=== PATIENT | male | born 1985 | race Caucasian/White ===

== ENCOUNTER 2017-06-18 11:52 | Inpatient (IN) | payer BC, OTHER ==
[~2017-06-18] VITALS: Ht 188 cm; Wt 93.0 kg
[2017-06-18] MEDS ORDERED: MAG HYDROX/AL HYDROX/SIMETH 30 ML LIQUID UDC PO PRN (12:30)
[2017-06-18] MEDS ORDERED: ONDANSETRON ODT 4 MG TAB.RAPDIS SL PRN (12:30)
[2017-06-18] MEDS ORDERED: DICYCLOMINE HCL 20 MG TABLET PO PRN (12:30)
[2017-06-18] MEDS ORDERED: METHOCARBAMOL 750 MG TABLET PO PRN (12:30)
[2017-06-18] MEDS ORDERED: ONDANSETRON 4 MG/2 ML VIAL IM PRN (12:30)
[2017-06-18] MEDS ORDERED: BUPRENORPHINE HCL 2 MG TAB.SUBL SL PRN (12:30)
[2017-06-18] MEDS ORDERED: ACETAMINOPHEN 325 MG TABLET PO PRN (12:30)
[2017-06-18] MEDS ORDERED: MIRALAX 17 GM POWD.PACK PO PRN (12:30)
[2017-06-18] MEDS ORDERED: DOCUSATE SODIUM 250 MG CAPSULE PO PRN (12:30)
[2017-06-18] MEDS ORDERED: LOPERAMIDE HCL 2 MG CAPSULE PO PRN ×2 (12:30)
--- NOTE | 2017-06-18 12:35 | NUR ---
PRE ASSESSMENT: PATIENT ARRIVED AT INTAKE AT 1235 , PATIENT IS ALERT AND ORIENTED AND ABLE TO ANSWER ALL RELEVANT QUESTIONS. VITAL SIGNS BP 161/95, HR 89, RR 18, TEMP 98.2. HEIGHT IS 6'2" AND WEIGHT 205 LBS. PATIENT IS HERE TO DETOX FROM OPIATES( PERCOCET ) AND BENZODIAZEPINES ( XANAX ). WILL CONTINUE ASSESSMENT WHEN PATIENT IS ON FLOOR . PATIENT WILL BE ADMITTED TO ROOM 306 UNDER THE CARE OF DR BRAXTON.
--- NOTE | 2017-06-18 13:20 | NUR ---
ADMISSION: PATIENT HAS BEEN ADMITTED TO THE FLOOR AND IS IN ROOM 306. SKIN CHECK DONE AND INTACT. PATIENT IS HERE TO DETOXIFY FROM OPIATES AND BENZODIAZEPINES. HE STATES HE RECENTLY MOVED HERE FROM [place] AND IS LIVING WITH HIS BROTHER AND HIS FAMILY ENCOURAGED HIM TO GO TO TREATMENT, PATIENT STATES HE WORKS IN [employer] AND HAS LOST THE LAST 3 GIGS DUE TO HIS SUBSTANCE ABUSE AND RAPID DECLINE OF HIS HEALTH. 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 PATIENT STATES HE HAS BEEN USING PERCOCET FOR 10 YEARS AND HAS BEEN CONSUMING 90-300MG OXYCODONE/DAY ORALLY OR SNORTING, LAST CONSUMED 90MG ON 06/17/17. PATIENT REPORTS USING XANAX FOR THE PAST 3 YEARS 2-4MG /DAY PO OR SNORT , LAST USED 1 MG PO ON 06/17/17. THIS IS THE PATIENTS FIRST TIME IN DETOX. PATIENT HAS NO PRIMARY CARE PHYSICIAN HERE IN [place], NO PSYCHOLOGIST OR PSYCHIATRIST, HE DENIES ANY SI/HI. DECLINES THE FLU AND PNU VACCINE. PATIENT STATES A HISTORY OF ANXIETY. DR BRAXTON STARTED PATIENT ON AN ATIVAN/SUBUTEX TAPER. PATIENT INSTRUCTED ON RULES OF THE UNIT, VITAL SIGNS AND HOW TO USE CALL LIGHT, URINE DRUG SCREEN AND BLOOD WORK SENT TO LAB.FOLLOW MD PLAN OF CARE Addendum: 06/18/17 at 1513 by JOANNE ALFONSO RN 1330 : initial COWS 16 CIWA 12
[2017-06-18] MEDS: BUPRENORPHINE HCL 2 MG TAB.SUBL SL SCH ×3 (13:28→20:09)
[2017-06-18] MEDS: METHOCARBAMOL 750 MG TABLET PO PRN (13:28)
[2017-06-18] MEDS: LORAZEPAM 1 MG TABLET PO SCH ×3 (13:28→20:09)
--- NOTE | 2017-06-18 13:28 | NUR ---
PRN ROBAXIN ROBAXIN 750MG PO GIVEN FOR C/O GENERAL BODY ACHES 10/10, WILL REASSESS
[2017-06-18 13:30] VITALS: BP 161/95
[2017-06-18 13:46] LABS: BASOPHILS % (AUTO) 0.5 % (0.0-2.0); EOSINOPHILS % (AUTO) 0.3 % (0.0-7.0); HEMOGLOBIN 14.4 g/dL (12.5-16.3); LYMPHOCYTES # (AUTO) 1.9 K/uL (20.0-40.0); LYMPHOCYTES % (AUTO) 21.9 % (20.5-51.5); MEAN CORPUSCULAR HEMOGLOBIN 29.8 uug (23.8-33.4); MEAN CORPUSCULAR HGB CONC 34 g/dL (32.5-36.3); MEAN CORPUSCULAR VOLUME 87.1 fL (73.0-96.2); MONOCYTES # (AUTO) 0.8 K/uL (2.0-10.0); MONOCYTES % (AUTO) 9.1 % (0.0-11.0); NEUTROPHILS % (AUTO) 68.2 % (38.5-71.5); PLATELET COUNT (AUTO) 241 K/uL (152-348); RED BLOOD CELL COUNT(AUTO) 4.82 MIL/uL (4.06-5.63); WHITE BLOOD COUNT (AUTO) 8.8 K/uL (3.6-10.2)
[2017-06-18 13:48] LABS: ETHANOL < 3 MG/DL (0-0)
[2017-06-18 13:51] LABS: ALANINE AMINOTRANSFERASE 53 U/L (16-63); ALKALINE PHOSPHATASE 77 U/L (50-136); ASPARTATE AMINOTRANSFERASE 27 U/L (15-37); BILIRUBIN,TOTAL 0.5 mg/dL (0.2-1.0); CARBON DIOXIDE 30 mmol/L (21-32); CHLORIDE 101 mmol/L (98-107); CREATININE 1.2 mg/dL (0.6-1.3); GLUCOSE 100 mg/dL (74-106); MAGNESIUM 2.1 mg/dL (1.8-2.4); POTASSIUM 3.8 mmol/L (3.5-5.1); TOTAL PROTEIN, SERUM 7.9 g/dL (6.4-8.2); UREA NITROGEN, BLOOD 13 mg/dL (7-18)
[2017-06-18 14:02] LABS: *AMPHETAMINE, URINE NEGATIVE (NEGATIVE); *BARBITURATE, URINE NEGATIVE (NEGATIVE); *CANNABINOID, URINE POSITIVE (NEGATIVE); *COCCAINE, URINE POSITIVE (NEGATIVE); *OPIATE, URINE POSITIVE (NEGATIVE); *PHENCYCLIDINE SCREEN,URINE NEGATIVE (NEGATIVE)
--- NOTE | 2017-06-18 14:28 | NUR ---
PRN ROBAXIN REASSESS PT STATES HIS WITHDRAWALS ARE "KICKING IN " , ROBAXIN 750MG PO HELPED , PAIN NOW 08/10, CONTINUE TO MONITOR
[2017-06-18] MEDS: BUPRENORPHINE HCL 2 MG TAB.SUBL SL PRN (15:08)
--- NOTE | 2017-06-18 15:10 | NUR ---
prn subutex 4mg SL subutex PRN given for COWS 17 CIWA 16, patient experiencing withdrawals, anxiety, restlessness, general body aches and runny nose. will continue to monitor
[2017-06-18 16:00] VITALS: BP 131/80
--- NOTE | 2017-06-18 16:00 | NUR ---
PRN MOTRIN MOTRIN 600MG PO GIVEN FOR BODY ACHES 10/10, WILL REASSESS
[2017-06-18] MEDS: IBUPROFEN 600 MG TABLET PO PRN ×2 (16:01→20:10)
[2017-06-18] MEDS ORDERED: CYAN500T47 PO (16:03)
--- NOTE | 2017-06-18 16:10 | NUR ---
PRN REASSESS PATIENT STATES THAT HIS WITHDRAWAL SYMPTOMS ARE STILL STRONG, HE HAS A FLUSHED FACE, FEELING LIKE BUGS ARE CRAWLING OVER HIS SKIN AND BODY ACHES, SCHEDULED 2 MG PO ATIVAN WILL BE GIVEN NOW, CONTINUE TO MONITOR, SAFETY MEASURES IN PLACE, BED LOW LOCKED POSITION , CALL LIGHT WITHIN REACH WITH INSTRUCTIONS ON HOW TO USE IT IF HELP NEEDED. Addendum: 06/18/17 at 1740 by JOANNE ALFONSO RN 1610 COWS 17 TERELL 17 ( NO CHANGE )
[2017-06-18] MEDS ORDERED: LORAZEPAM 1 MG TABLET PO PRN (16:15)
[2017-06-18] MEDS ORDERED: LORAZEPAM 2 MG/1 ML VIAL IM PRN (16:15)
--- NOTE | 2017-06-18 17:10 | NUR ---
MOTRIN REASSESS MOTRIN 600MG PO NOT EFFECTIVE, PT STATES HIS ACHES ARE STILL 6/10, WILL CONTINUE TO MONITOR AND OFFER HELP
--- NOTE | 2017-06-18 18:00 | NUR ---
PRN ATIVAN 2MG PO ATIVAN GIVEN FOR CIWA 16, PT ANXIOUS AND FEELS LIKE BUGS ARE CRAWLING OVER HIM, WILL REASSESS
[2017-06-18] MEDS: LORAZEPAM 1 MG TABLET PO PRN (18:03)
--- NOTE | 2017-06-18 19:00 | NUR ---
ATIVAN REASSESS PATIENT STILL EXPERIENCING UNCOMFORTABLE WITHDRAWAL SYMPTOMS BUT STATES THAT IT IS MANAGEABLE, CONTINUE TO MONITOR
--- NOTE | 2017-06-18 19:27 | NUR ---
END OF SHIFT : 306 PATIENT WAS ADMITTED TODAY 06/18/17 FOR WITHDRAWAL FROM OPIATES AND BENZODIAZEPINES. PATIENT HAS STARTED ON A 5 DAY ATIVAN AND SUBUTEX TAPER, LAST COWS 17 AND CIWA 16 @ 1700. PATIENT HAS SYMPTOMS OF WITHDRAWAL: FEELS LIKE BUGS ARE CRAWLING OVER HIM, GOOSEFLESH, SWEATING, CHILLS ALL OVER BODY ACHES AND ANXIOUSNESS. PRN ROBAXIN 750MG PO , SUBUTEX 4MG SL, MOTRIN 600MG PO, ATIVAN 2MG PO ALL GIVEN THIS SHIFT IN ADDITION TO SCHEDULED TAPER MEDS. PATIENT HAD A FLUID INTAKE THIS SHIFT OF 2200ML, 4 VOIDS AND 1 BM, CONTINUE TO MONITOR AND FOLLOW MD PLAN OF CARE.
--- NOTE | 2017-06-18 19:30 | NUR ---
Start of Shift Note: Received patient alert & oriented x4. Patient presented with an anxious mood and has a worried facial expression. Patient started on a 5-day Ativan and 5-day Subutex taper and tolerating well. Patient appears flushed, with red & teary eyes, diaphoretic, and looks disheveled. Patient reports cold sweats, 7/10generalized body aches, runny nose, yawning and anxiety. Patient also reports something crawling in his skin yet denies visual or auditory hallucinations. Last COWS 17 CIWA 16. Pt received Robaxin, Subutex, Ativan and Motrin and was effective per report. Encourage pt to increase fluid intake. Pt educated current plan of care for the night and medication regimen.
[2017-06-18 20:00] VITALS: BP 135/84
[2017-06-18] MEDS: GABAPENTIN 300 MG CAPSULE PO SCH (20:10)
--- NOTE | 2017-06-18 20:10 | NUR ---
PRN Motrin Patient complained of 7/10 generalized body aches. Pt noted restless in bed and with facial grimacing noted. PRN Motrin administered as ordered. Will monitor for effectiveness of medication.
--- NOTE | 2017-06-18 21:10 | NUR ---
PRN Reassessment Pt verbalized decreased in pain from 7/10 to 3/10 & restlessness after medication administration. No facial grimacing noted. Pt observed comfortable in bed. Safety measures in place. Will continue to monitor patient.
[2017-06-19] VITALS (7 sets, daily range): BP systolic 118–142; BP diastolic 70–89
--- NOTE | 2017-06-19 07:00 | NUR ---
Start of Shift Note: Patient remained alert & oriented x4. Patient is on a 6-day Ativan & 6-day Subutex taper and tolerating well. No adverse reactions noted. Continue to closely monitor patient for s/s of withdrawal. Patient presented with cold sweats, generalized body aches, runny nose, teary eyes, yawning, fine tremors anxiety & agitation during my shift. Pt received PRN Motrin for body aches and was effective. Last CI. Closely monitored vitals signs and noted WNL. Pt slept for a total of 7 hours. Fluid intake: 592ml. Voided 2x with no bowel movement during my shift. Patient encourage to increase fluid intake as tolerated. All needs attended. Safety measures in place. Will endorse to day shift nurse. Addendum: 06/19/17 at 0700 by HEENA KEE RN ERROR: DUPLICATE
--- NOTE | 2017-06-19 07:00 | NUR ---
End of Shift Note: Patient remained alert & oriented x4. Patient is on a 6-day Ativan & 6-day Subutex taper and tolerating well. No adverse reactions noted. Continue to closely monitor patient for s/s of withdrawal. Patient presented with cold sweats, generalized body aches, runny nose, teary eyes, yawning, fine tresmors anxiety & agitation during my shift. Pt received PRN Motrin for body aches and was effective. Last CI. Closely monitored vitals signs and noted WNL. Pt slept for a total of 7 hours. Fluid intake: 592ml. Voided 2x with no bowel movement during my shift. Patient encourage to increase fluid intake as tolerated. All needs attended. Safety measures in place. Will endorse to day shift nurse.
[2017-06-19 07:06] LABS: HEPATITIS B SURFACE AG Negative (Negative)
--- NOTE | 2017-06-19 07:20 | NUR ---
START OF SHIFT: PATIENT IS ASLEEP IN BED AT THIS TIME, BREATHING EVEN AND UNLABORED, SIDE RAILS UP X 2. PATIENT REQUIRED PRN MOTRIN ON PM SHIFT , HE SLEPT FOR 7 HOURS. LAST COWS 13 AND CIWA 13. THIS IS DAY 2 OF PATIENTS SUBUTEX/ATIVAN TAPER, WILL MONITOR CAREFULLY FOR SIGS/SYMPTOMS OF WITHDRAWAL AND FOLLOW MD PLAN OF CARE.
[2017-06-19] MEDS: LORAZEPAM 1 MG TABLET PO SCH ×3 (08:09→20:12)
[2017-06-19] MEDS: GABAPENTIN 300 MG CAPSULE PO SCH ×2 (08:09→14:13)
[2017-06-19] MEDS: BUPRENORPHINE HCL 2 MG TAB.SUBL SL SCH ×3 (08:10→20:12)
[2017-06-19] MEDS: METHOCARBAMOL 750 MG TABLET PO PRN ×3 (08:14→20:12)
--- NOTE | 2017-06-19 08:14 | NUR ---
PRN ROBAXIN ROBAXIN 750MG PO GIVEN FOR BODY ACHES, PAIN 5/10, WILL REASSESS IN 1 HR
[2017-06-19] MEDS ORDERED: TUBERCULIN,PURIF.PROT.DERIV. 5 TU/0.1 ML TEST ID ONE (09:00)
--- NOTE | 2017-06-19 09:14 | NUR ---
PRN REASSESS PATIENT STATES THAT THE ROBAXIN HAS HELPED SOMEWHAT, PAIN LEVEL 4/10 BUT HE STILL HAS THE FEELING OF BUGS CRAWLING ALL OVER HIS SKIN, WILL CONTINUE TO ASSESS
--- NOTE | 2017-06-19 10:30 | NUR ---
PRN MEDS PRN SUBUTEX 4MG SL AND ATIVAN 2MG PO GIVEN FOR COWS 16 / CIWA 17 CLONIDINE 0.1MG PO GIVEN FOR ANXIETY BP 133/84 , HR 96 WILL REASSESS IN 1 HR
[2017-06-19] MEDS: LORAZEPAM 1 MG TABLET PO PRN ×2 (10:34→17:25)
[2017-06-19] MEDS: CLONIDINE HCL 0.1 MG TABLET PO PRN ×2 (10:36→20:12)
[2017-06-19] MEDS: BUPRENORPHINE HCL 2 MG TAB.SUBL SL PRN (10:36)
--- NOTE | 2017-06-19 11:30 | NUR ---
PRN REASSESS PATIENT STATES THE MEDICATION HAS HELPED WITH HIS WITHDRAWAL SYMPTOMS , HE FEELS "LESS ANXIOUS AND JITTERY" SAFETY MEASURES IN PLACE, BED LOW AND LOCKED WITH SIDE RAILS UP X 2, CONTINUE TO MONITOR. COWS 14/ CIWA 14
[2017-06-19] MEDS: IBUPROFEN 600 MG TABLET PO PRN (17:24)
--- NOTE | 2017-06-19 17:25 | NUR ---
PRN MEDS PRN ATIVAN 2MG PO GIVEN FOR COWS 13/CIWA 14 AND FOR C/O INCREASED ANXIETY ROBAXIN 750MG PO FOR NECK/BACK PAIN 09/09 MOTRIN 600MG PO WILL REASSESS
--- NOTE | 2017-06-19 18:25 | NUR ---
PRN REASSESS PATIENT IS NOTED TO BE ASLEEP, BREATHING EVEN AND UNLABORED, SIDE RAILS UP X 2
--- NOTE | 2017-06-19 19:30 | NUR ---
Start of Shift Note: Received patient alert & oriented x4. Patient appears flushed with red/teary eyes, looks unkempt and disheveled. Pt isolative in room most of the day. Encourage pt to increase activity and to participate in group activities to learn new coping skills. Pt has a flat affect, anxious/irritable mood, & with poor eye conact. Patient reports sweating, chills, 8/10 generalized body aches, restless legs, runny nose, yawning and anxiety. Patient also reports something crawling in his skin yet denies visual or auditory hallucinations. Patient is on a 5-day Ativan and 5-day Subutex taper with no adverse reactions noted. Pt tolerating taper well. Last COWS CIWA 14. Pt received Ativan 2mg, Robaxin & Motrin and were effective per report. Encourage pt to increase fluid intake. Pt educated current plan of care for the night and medication regimen.
--- NOTE | 2017-06-19 19:31 | NUR ---
END OF SHIFT : PATIENT DETOXING FROM OPIATES AND BENZOS ON DAY 2 OF ATIVAN/SUBUTEX TAPER. PATIENT HAS A VERY FLAT , DEPRESSED AFFECT AND HAS ISOLATED IN HIS ROOM ALL DAY, ENCOURAGED TO GO TO GROUP BUT DECLINED SAYING HE DIDN'T FEEL LIKE BEING AROUND PEOPLE. PRN MEDS GIVEN ON THIS SHIFT : ROBAXIN 750MG PO X 2, ATIVAN 2 MG PO , MOTRIN 600MG PO AND SUBUTEX 4MG SL. PATIENT STATES THAT HE IS UNCOMFORTABLE WITH HIS WITHDRAWALS AND DOESNT LIKE THE FEELING HE HAS OF BUGS CRAWLING OVER HIS SKIN ALL THE TIME. PATIENT HAS FLUSHED FACE WITH BEADS OF SWEAT ON FACE. ENCOURAGED PATIENT TO DRINK MORE FLUIDS. LAST COWS 13 AND CIWA 14 @ 6132. CONTINUE MD PLAN OF CARE.
--- NOTE | 2017-06-19 20:12 | NUR ---
PRN Clonidine & Robaxin Patient is anxious and agitated. Pt reports sweating, chills and generalized body aches with facial grimacing noted. PRN Clonidine and Robaxin administered as ordered. Safety measures in place. Will continue to monitor patient.
--- NOTE | 2017-06-19 21:12 | NUR ---
PRN Reassessment Pt verbalized decreased in anxiety and pain from 8/10 to 4/10 after medication administation. Pt also reported decreased in sweating or chills. Safety measures in place. Will continue to monitor patient.
--- NOTE | 2017-06-20 07:20 | NUR ---
End of Shift Note: Patient continues on a 6-day Ativan & 6-day Subutex taper and tolerating well. No adverse reactions noted. Continue to closely monitor patient for s/s of withdrawal. Patient presented with cold sweats, generalized body aches, runny nose, teary eyes, yawning, fine tresmors anxiety & agitation during my shift. Pt received PRN Clonidine for sweating and chills & Robaxin for body aches and were effective. Last COWS 14 CIWA 13. Closely monitored vitals signs and noted WNL. Pt slept for a total of 8 hours. Fluid intake: 1000 ml. Voided 2x with no bowel movement during my shift. Patient encourage to increase fluid intake as tolerated. All needs attended. Safety measures in place. Will endorse to day shift nurse.
--- NOTE | 2017-06-20 07:30 | NUR ---
Start of shift note; Received report from night shift supervisor nurse. Patient is a 32 year old male admitted on 06/18/17 for Opiate / Benzodiazepine withdrawals. Patient is AOX4 complaining of muscle aches, anxiety, agitation, diaphoresis, avoidant to eye contact, worried, tremors to touch. Educated patient regarding the importance of compliance to treatment and medication regime, patient verbalized understanding. Encouraged patient to participate in group therapies and to verbalize feelings. All safety measures secured. Will continue to monitor patient.
[2017-06-20 08:00] VITALS: BP 133/86
[2017-06-20] MEDS ORDERED: BUPRENORPHINE HCL 2 MG TAB.SUBL SL SCH (09:00)
[2017-06-20] MEDS ORDERED: GABAPENTIN 300 MG CAPSULE PO SCH ×3 (09:00→21:00)
[2017-06-20] MEDS: LORAZEPAM 1 MG TABLET PO SCH ×4 (09:12→20:37)
[2017-06-20] MEDS: GABAPENTIN 300 MG CAPSULE PO SCH ×2 (09:12→14:08)
[2017-06-20 12:00] VITALS: BP 130/81
[2017-06-20] MEDS: METHOCARBAMOL 750 MG TABLET PO PRN ×2 (14:08→20:39)
[2017-06-20] MEDS: HYDROXYZINE PAMOATE 25 MG CAPSULE PO PRN (14:08)
[2017-06-20] MEDS: BUPRENORPHINE HCL 2 MG TAB.SUBL SL SCH ×2 (14:08→20:38)
--- NOTE | 2017-06-20 14:08 | NUR ---
PRN medication; Patient is complaining of muscle aches and anxiety. PRN Robaxin 750mg PO given for muscle aches and Vistaril 25mg PO PRN given for anxiety as ordered. Will continue to monitor for effectiveness of medication.
--- NOTE | 2017-06-20 15:08 | NUR ---
Re-assessment; Patient denies muscle aches and anxiety at this time, PRN medications were effective.
[2017-06-20 16:00] VITALS: BP 125/68
[2017-06-20] MEDS: IBUPROFEN 600 MG TABLET PO PRN (16:16)
--- NOTE | 2017-06-20 16:16 | NUR ---
PRN medication; Patient is complaining of back pain , PRN Motrin 600mg given PRN for pain of 8/10. Will continue to monitor patient for effectiveness of treatment.
--- NOTE | 2017-06-20 17:16 | NUR ---
Re-assessment; Patient is denies pain at this time. PRN medication noted to be effective.
--- NOTE | 2017-06-20 18:26 | NUR ---
End of shift note; Patient is AOX4. Patient remained compliant with medication regime. Encouraged patient to attend group therapies but patient refused to participate. Patient received PRN Motrin, Robaxin , Vistaril all noted to be effective. Patient's last COWS is 7 and last CIWA is 6. Medications noted to be effective in reducing withdrawal symptoms. All safety measures secured. Met all needs.
--- NOTE | 2017-06-20 19:30 | NUR ---
START OF SHIFT Pt is a 32 y/o male admitted on 06/18/17 for benzo and opiate withdrawal. Pt is on a 5 day Ativan and Subutex taper that started on 06/18/17, tolerating well. Per day shift nurse, last COWS 7 and CIWA 6 and PRN Motrin, Robaxin and Vistaril administered. Pt remained withdrawn in room most of shift. Upon assessment pt presents with anxiety, agitation, chills, cold sweats, increased HR and BP, flat affect, restlessness, difficulty falling and staying asleep, runny nose, tremors, skin crawling, body aches 8/10, photosensitivity, back and hip chronic pain 8/10, yawning, anhedonia and dysphoria. Medications due. Safety measures in place. Call light within reach. Will continue to monitor.
[2017-06-20 20:00] VITALS: BP 141/100
[2017-06-20] MEDS: diphenhydrAMINE 50 MG CAPSULE PO PRN (20:38)
[2017-06-20] MEDS: CLONIDINE HCL 0.1 MG TABLET PO PRN (20:39)
--- NOTE | 2017-06-20 20:40 | NUR ---
PRN ROBAXIN, BENADRYL, CLONIDINE, TYLENOL ADMINISTRATION Pt reports body aches 8/10 and back and hip pain r/t chronic injury. Pt also presents with BP 141/100 HR 108, anxiety, agitation, chills, sweats and requests sleep aid. Safety measures in place. Call light within reach. Will continue to monitor.
[2017-06-20 21:40] VITALS: BP 132/83
--- NOTE | 2017-06-20 21:40 | NUR ---
PRN ROBAXIN, BENADRYL, CLONIDINE AND TYLENOL REASSESSMENT Pt laying in bed with eyes closed, medications noted effective. BP 132/83 HR 88. Respirations 16, even and unlabored. Safety measures in place. Call light within reach. Will continue to monitor.
--- NOTE | 2017-06-21 | NUR ---
COWS/CIWA DEFERRED AND VITALS REFUSED Pt laying in bed with eyes closed, COWS/CIWA deferred, to be assessed when pt is awake per orders. Vitals refused. Respirations even and unlabored. Safety measures in place. Call light within reach. Will continue to monitor.
--- NOTE | 2017-06-21 07:08 | NUR ---
END OF SHIFT Pt is a 32 y/o male admitted on 06/18/17 for benzo and opiate withdrawal. Pt is on a 5 day Ativan and Subutex taper that started on 06/18/17, tolerating well. Pt presented with anxiety, agitation, chills, cold sweats, increased HR and BP, flat affect, restlessness, difficulty falling and staying asleep, runny nose, tremors, skin crawling, body aches 8/10, photosensitivity, back and hip chronic pain 8/10, yawning, anhedonia and dysphoria. Scheduled medications and PRN Robaxin, Benadryl, Clonidine and Tylenol administered, effective in S/S of withdrawal as verbalized by pt. Last COWS 16 and CIWA 14. Pt slept 7 hours. Intake 1000 ml, void x 5, stool x 0. Safety measures in place. Call light within reach. Pts needs have been met. Endorsed to day shift nurse.
--- NOTE | 2017-06-21 07:19 | NUR ---
Start of Shift Notes: Received endorsement from night nurse. Patient is alert and verbally responsive. Oriented x 4. Affect is flat. Room cluttered and odorous with empty water bottles and empty candy bars on the bedside table. Encouraged maintenance of personal hygiene and space. Patient is a 32 year old male admitted for opiate and BZO dependence who was placed on a 5-day Ativan and 5-day Subutex taper as ordered. No adverse reactions noted. PRN Clonidine, Tylenol, Robaxin and Benadryl given during the night. SLept for 7 hours. Educated patient on her current plan of care for the day and her medication regimen. Encouraged oral fluid intake and encouraged group participation to learn new skills to prevent relapse. Will continue to monitor. Addendum: 06/21/17 at 1014 by CARMELITA KRISHNA LVN Clarification to note: Patient is here for opiate and BZO withdrawal, not dependence.
[2017-06-21 08:00] VITALS: BP 122/79
--- NOTE | 2017-06-21 08:07 | NUR ---
Motrin 400 mg/Robaxin 750 mg PO given: Patient noted with complain of 6/10 generalized pain related to withdrawals. Non-pharmacological interventions provided but ineffective. Medicated patient with Motrin 400 mg PO and Robaxin 750 mg PO as ordered. Will monitor for effectiveness.
[2017-06-21] MEDS: METHOCARBAMOL 750 MG TABLET PO PRN ×2 (08:09→08:10)
[2017-06-21] MEDS: GABAPENTIN 300 MG CAPSULE PO SCH ×3 (08:09→20:12)
[2017-06-21] MEDS: IBUPROFEN 600 MG TABLET PO PRN (08:09)
[2017-06-21] MEDS: BUPRENORPHINE HCL 2 MG TAB.SUBL SL SCH ×3 (08:09→20:12)
[2017-06-21] MEDS ORDERED: LORAZEPAM 1 MG TABLET PO SCH ×3 (09:00→21:00)
--- NOTE | 2017-06-21 09:07 | NUR ---
Re-assessment: Motrin and Robaxin Patient verbalizes PL is 2/10 and that PRN Motrin and Robaxin was effective.
[2017-06-21] MEDS ORDERED: KETOROLAC TROMETHAMINE 30 MG INJ IM PRN (11:30)
[2017-06-21 12:00] VITALS: BP 134/79
[2017-06-21] MEDS ORDERED: BUPRENORPHINE HCL 2 MG TAB.SUBL SL SCH (12:00)
--- NOTE | 2017-06-21 12:00 | NUR ---
Subutex 2 mg given: MARINO Wolf MD ordered for patient to receive extra dose of Subutex 2 mg PO now on top of the scheduled taper.
[2017-06-21] MEDS: BACLOFEN 10 MG TABLET PO SCH ×2 (14:01→20:11)
[2017-06-21 17:00] VITALS: BP 124/77
--- NOTE | 2017-06-21 19:02 | NUR ---
End of Shift Notes: Patient continues to be on 5-day Subutex and 5-day Ativan taper as ordered. No adverse reactions noted. Patient is tolerating taper well. VS monitored closely. No significant abnormalities noted. Withdrawal symptoms were closely monitored. Initial COWS 16/ 14, patient presented with facial flushing, restlessness, myalgia, runny nose, yawning, anxiety, agitation, sweating, numbness/tingling sensation. Medicated patient with Robaxin and Motrin at 0807 for generalized muscle aches with help after 1 hour. Additional Subutex 2 mg SL given at 1200 per MD. Last COWS / 12. Denies S/I or H/I/. No AV hallucinations noted. Per patient, Ativan and Subutex has been effective in reducing patients withdrawal symptoms. Patient requires encouragement to attend group and to socialize due to episodes of self isolation during the day. All needs met and attended. Will continue to monitor closely.
--- NOTE | 2017-06-21 19:30 | NUR ---
START OF SHIFT Received 32 year old male patient. Pt is alert and oriented x4. Pt noted with anxiety, agitation, and restlessness. Pt appears flat, unshaven, and flushed. He is receiving a 5 day Ativan and 5 day Subutex taper and is tolerating well. Per endorsement, pt received PRN Robaxin and Motrin. He received a one time dose of Subutex at 1300. Breathing is even and unlabored. Safety measures in place. Will continue to monitor.
[2017-06-21 20:06] VITALS: BP 137/80
[2017-06-21] MEDS: CLONIDINE HCL 0.1 MG TABLET PO SCH (20:11)
[2017-06-21] MEDS: diphenhydrAMINE 50 MG CAPSULE PO PRN (20:12)
--- NOTE | 2017-06-21 20:12 | NUR ---
PRN BENADRYL Pt complains of inability to sleep. PRN Benadryl administered as ordered. Safety measures in place. Will monitor effectiveness.
--- NOTE | 2017-06-21 21:12 | NUR ---
PRN BENADRYL REASSESSMENT PRN medication ineffective. Pt still awake watching TV, appears drowsy and reports he is ready to sleep. Safety measures in place. Will continue to monitor.
--- NOTE | 2017-06-22 | NUR ---
VITALS REFUSED, COWS/CIWA DEFERRED Pt refused 0000 vital signs at beginning of shift. Pt reports he's been having trouble falling asleep, and refuses to be woken up for vital signs. COWS/CIWA deferred d/t pt lying in bed with eyes closed and is asleep. Safety measures in place. Will continue to monitor.
--- NOTE | 2017-06-22 04:00 | NUR ---
VITALS REFUSED, COWS/CIWA DEFERRED Pt refused 0400 vital signs at beginning of shift. Pt reports he's been having trouble falling asleep, and refuses to be woken up for vital signs. COWS/MAYRAWA deferred d/t pt lying in bed with eyes closed and is asleep. Safety measures in place. Will continue to monitor.
--- NOTE | 2017-06-22 07:14 | NUR ---
END OF SHIFT Pt is a 32 year old male patient. Pt remains alert and oriented x4. Pt had complaints of anxiety, diaphoresis, insomnia, agitation and restlessness during shift. He received PRN Benadryl for sleep. He slept a total of 9 hrs, Intake: 500mL, Void: x2, BM:0, COWS:11, CIWA:12. Breathing is even and unlabored. Safety measures in place. Endorsed to AM shift.
--- NOTE | 2017-06-22 07:34 | NUR ---
Start of shift note; Received report from material handler 2nd shift nurse. Patient is a 32 year old male admitted on 06/18/17 for Opiate / Benzodiazepine withdrawals. Patient is AOX4 complaining of muscle aches, anxiety, agitation, diaphoresis, avoidant to eye contact, worried, tremors to touch. Educated patient regarding the importance of compliance to treatment and medication regime, patient verbalized understanding. Encouraged patient to participate in group therapies and to verbalize feelings. Patient slept for 9 hours. PRN Benadryl was given last night. Patient's last COWS score is 11 and last CIWA is 12 per endorsement. All safety measures secured. Will continue to monitor patient.
[2017-06-22 08:00] VITALS: BP 130/86
[2017-06-22] MEDS: GABAPENTIN 300 MG CAPSULE PO SCH ×2 (08:49→14:18)
[2017-06-22] MEDS: BACLOFEN 10 MG TABLET PO SCH ×3 (08:49→21:19)
[2017-06-22] MEDS: CLONIDINE HCL 0.1 MG TABLET PO SCH ×2 (08:50→14:18)
[2017-06-22] MEDS ORDERED: LORAZEPAM 1 MG TABLET PO SCH ×2 (09:00→13:00)
[2017-06-22] MEDS ORDERED: BUPRENORPHINE HCL 2 MG TAB.SUBL SL SCH ×3 (09:00→13:00)
--- NOTE | 2017-06-22 09:01 | NUR ---
Behavioral note; Patient is AOX4, complaining of muscle aches, diaphoresis, agitation, anxiety with Current COWS score of 8 and CIWA of 5. Upon administration of scheduled medications, patient attempted to hide his Ativan pill in hands. Confronted patient and instructed to take medication as directed. Witnessed patient take all his medications as prescribed. Thorough mouth/hand inspection done, all medications were swallowed and Subutex successfully dissolved. Will closely monitor patient. Charge nurse notified. Will notify MD during MD rounds. Addendum: 06/22/17 at 0957 by JOSELITO WISE LVN MD on unit. Notified MD regarding patient's behavior and his attempt to hide Ativan pill.
[2017-06-22] MEDS ORDERED: METHYL SALICYLATE/MENTHOL CREAM 28 GM TUBE TOP PRN (11:30)
[2017-06-22 12:00] VITALS: BP 132/82
[2017-06-22] MEDS: LORAZEPAM 1 MG TABLET PO SCH ×2 (14:18→21:19)
[2017-06-22 16:00] VITALS: BP 121/83
[2017-06-22] MEDS: BUPRENORPHINE HCL 2 MG TAB.SUBL SL SCH ×2 (16:36→21:20)
--- NOTE | 2017-06-22 18:29 | NUR ---
End of shift note; Patient is AOX4. Patient's Subutex and Ativan tapers were modified by MD. Medications were effective in reducing withdrawal symptoms. Patient's last COWS is 8 and last CIWA is 7. Patient was educated regarding unit protocols and policies and consequences of non-compliance to unit policies, patient verbalized understanding. Patient participated in group activities and therapies. All safety measures secured. Met all needs.
--- NOTE | 2017-06-22 19:30 | NUR ---
START OF SHIFT Received 32 year old male patient. Pt is alert and oriented x4. Pt complains of anxiety, restlessness and agitation. Pt noted to be disheveled, withdrawn, and suspicious. Per endorsement, pt was caught attempting to hide Ativan between his fingers. His taper was extended and he received a new order for Trazodone for sleep. Breathing is even and unlabored, safety meausures in place. Will continue to monitor.
[2017-06-22 20:00] VITALS: BP 129/79
[2017-06-22] MEDS ORDERED: TRAZODONE 50 MG TABLET PO SCH (21:00)
[2017-06-22] MEDS ORDERED: GABAPENTIN 300 MG CAPSULE PO SCH (21:00)
[2017-06-22] MEDS: CLONIDINE HCL 0.2 MG TABLET PO SCH (21:18)
--- NOTE | 2017-06-23 | NUR ---
VITALS REFUSED, COWS/CIWA DEFERRED 0000 vitals refused. Pt reports difficulty sleeping, and does not want to be woken up for vitals. COWS/ CIWA deferred d/t pt lying in bed with eyes closed noted to be asleep. Breathing even and unlabored, safety measures in place. Will continue to monitor.
--- NOTE | 2017-06-23 04:25 | NUR ---
VITALS REFUSED, COWS/CIWA DEFERRED 0400 vitals refused. Pt reports difficulty sleeping, and does not want to be woken up for vitals. COWS/ CIWA deferred d/t pt lying in bed with eyes closed noted to be asleep. Breathing even and unlabored, safety measures in place. Will continue to monitor.
--- NOTE | 2017-06-23 07:11 | NUR ---
END OF SHIFT Pt is a 32 year old male patient. Pt remains alert and oriented x4. Pt had complains of anxiety, restlessness, and agitation. Pt noted to be isolative, suspicious and withdrawn. Pt noted to be disheveled. Pt verbalized he is worried about being discharged d/t withdrawal symptoms he may feel once he leaves the facility. Encouraged pt to express his feelings and reassured pt. He did not receive or request PRN medications. He slept a total of 6 hrs, Intake: 1550mL, Void: x4, BM:0, COWS:9, CIWA:7. Breathing is even and unlabored, safety meausures in place. Will endorse to AM shift.
--- NOTE | 2017-06-23 07:30 | NUR ---
START OF SHIFT Pt is a 32 yr old male, AA&Ox4. Pt was admitted on 06/18/17 for Opiate/Benzo withdrawal and is on 6 day Ativan and 6 day Subutex taper as ordered. Medication isaías well. Received report from weight shifter nurse. No PRN's were given during the night. Pt slept for 6 hrs. Last COWS score was 9 and CIWA score was 7 at 2000. Pt is currently c/o muscle aching 8/10, cold/hot chills and stating "I feel like my skin is crawling". No tremors seen or felt. Pt is scheduled for Subutex 2mg SL and Ativan 1mg PO at 0900. Encouraged increase fluid intake. Skin is intact, warm and moist to touch. Safety precautions observed. Call light is within reach. Will continue to monitor.
[2017-06-23 08:10] VITALS: BP 118/71
[2017-06-23] MEDS: GABAPENTIN 300 MG CAPSULE PO SCH (08:57)
[2017-06-23] MEDS: CLONIDINE HCL 0.1 MG TABLET PO SCH ×2 (08:57→14:08)
[2017-06-23] MEDS: BACLOFEN 10 MG TABLET PO SCH (08:57)
[2017-06-23] MEDS: BUPRENORPHINE HCL 2 MG TAB.SUBL SL SCH ×3 (08:58→21:18)
[2017-06-23] MEDS ORDERED: BUPRENORPHINE HCL 2 MG TAB.SUBL SL SCH (09:00)
[2017-06-23] MEDS ORDERED: LORAZEPAM 1 MG TABLET PO SCH ×2 (09:00)
[2017-06-23 12:00] VITALS: BP 124/82
[2017-06-23] MEDS: IBUPROFEN 800 MG TABLET PO PRN ×2 (13:22→21:44)
--- NOTE | 2017-06-23 13:22 | NUR ---
PRN GIVEN Pt c/o generalized body aches 12/10. Facial grimacing and facial flush is observed. Motrin 800mg PO PRN and Bengay Cream PRN was given for pain. Medication isaías well. Encouraged increase fluid intake.Will continue to monitor.
[2017-06-23] MEDS: BACLOFEN 20 MG TABLET PO SCH ×2 (14:08→20:52)
[2017-06-23] MEDS: GABAPENTIN 400 MG CAPSULE PO SCH ×2 (14:09→20:52)
[2017-06-23] MEDS: LORAZEPAM 1 MG TABLET PO SCH ×2 (14:09→20:52)
--- NOTE | 2017-06-23 14:22 | NUR ---
PRN RE-ASSESSMENT Beena CHAPPELLN and Indy was effective. Pt continue to c/o pain but is able to isaías pain level. Encouraged increase fluid intake. Will continue to monitor.
[2017-06-23 16:00] VITALS: BP 102/82
--- NOTE | 2017-06-23 19:03 | NUR ---
END OF SHIFT Pt is a 32 yr old male, AA&Ox4. Pt was admitted on 06/18/17 for Opiate/Benzo Withdrawal and is on day 5 of 6 day Subutex taper and 6 day Ativan taper as ordered. Medication isaías well. Pt has been cooperative with medication regimen and attending group therapy. Pt received Motrin 800mg PO PRN and Scott-Zhu Cream for pain mgt. Medication was mildly effective. Pt continues to c/o generalized pain. Pt was educated on pain mgt. Pt has also been noted with disheveled hair and dirty finger nails and feet. Pt was encouraged to shower. Pt was noted to shower x1 in the day. Pt has been observed with flat affective and facial redness. Pt was encouraged to drink plenty of fluids for hydration. Last COWS score was 8 and CIWA score was 12 at 1600. Safety precautions observed. Call light is within reach.
--- NOTE | 2017-06-23 19:30 | NUR ---
START OF SHIFT Received 32 year old male patient. Pt is alert and oriented x4. Pt noted to be anxious, restless, and suspicious. Pt is withdrawn with poor eye contact. He complains of body aches and anxiety. Per endorsement, he received PRN Motrin and showered x1 today. Breathing is even and unlabored. Safety measures in place. Will continue to monitor.
[2017-06-23 20:00] VITALS: BP 139/87
[2017-06-23] MEDS: QUETIAPINE FUMARATE 25 MG TABLET PO PRN (20:53)
[2017-06-23] MEDS: CLONIDINE HCL 0.2 MG TABLET PO SCH (20:53)
--- NOTE | 2017-06-23 20:53 | NUR ---
PRN SEROQUEL Pt complains of insomnia and reports that he has not been able to sleep well the past 2-3 nights. PRN Seroquel administered as ordered. Safety measures in place. Will monitor effectiveness.
--- NOTE | 2017-06-23 21:44 | NUR ---
PRN MOTRIN Pt complains of generalized pain 8/10. Pt noted to be irritable and restless with flushed face. PRN Motrin administered as ordered. Safety measures in place. Will monitor effectiveness.
--- NOTE | 2017-06-23 21:53 | NUR ---
PRN SEROQUEL REASSESSMENT PRN medication ineffective. Pt still awake, appears drowsy and reports he is ready to sleep soon. Breathing is even and unlabored. Safety measures in place. Will monitor.
--- NOTE | 2017-06-23 22:44 | NUR ---
PRN MOTRIN REASSESSMENT PRN medication effective. Pt lying in bed with eyes closed noted to be asleep. No facial grimacing noted. Breathing is even and unlabored. Safety measures in place. Will continue to monitor.
--- NOTE | 2017-06-24 | NUR ---
VITALS REFUSED, COWS/CIWA DEFERRED 0000 vitals refused. Pt refuse to be woken up for vitals if he is sleeping d/t complaints of difficulty falling asleep. COWS/ CIWA deferred d/t pt lying in bed with eyes closed noted to be asleep. Breathing even and unlabored, safety measures in place. Will continue to monitor.
--- NOTE | 2017-06-24 04:00 | NUR ---
VITALS REFUSED, COWS/CIWA DEFERRED 0400 vitals refused. Pt reports difficulty sleeping and refused vitals if asleep. COWS/ CIWA deferred d/t pt lying in bed with eyes closed noted to be asleep. Breathing even and unlabored, safety measures in place. Will continue to monitor.
--- NOTE | 2017-06-24 07:12 | NUR ---
END OF SHIFT Pt is a 32 year old male patient. Pt remains alert and oriented x4. Pt had complaints of anxiety, restlessness, body aches and insomnia. He received PRN Motrin and Seroquel. He was able to sleep a total of 5 hrs, Intake:2,000mL, Void:x3, BM:0, COWS:9 , CIWA:6. Breathing is even and unlabored. Safety measures in place. Will endorse to AM shift.
--- NOTE | 2017-06-24 07:30 | NUR ---
START OF SHIFT Pt is a 32 yr old male, AA&Ox4. Pt was admitted on 06/18/17 for Opiate/Benzo withdrawal and is on 6 day Ativan and 6 day Subutex taper as ordered. Received report from night club manager nurse. Pt received Motrin PRN and Seroquel PRN. Medication was effective. Pt slept for 5 hrs intermittently. Last COWS score was 9 and CIWA score was 11 at 2200. Pt is currently in bed sleeping with respirations even and unlabored. Skin is intact, warm and moist to touch. Safety precautions observed. Call light is within reach. Will continue to monitor.
[2017-06-24 08:00] VITALS: BP 111/66
[2017-06-24] MEDS ORDERED: BUPRENORPHINE HCL 2 MG TAB.SUBL SL SCH (09:00)
[2017-06-24] MEDS ORDERED: LORAZEPAM 1 MG TABLET PO SCH (09:00)
[2017-06-24] MEDS: CLONIDINE HCL 0.1 MG TABLET PO SCH ×2 (09:04→15:14)
[2017-06-24] MEDS: BACLOFEN 20 MG TABLET PO SCH ×3 (09:05→20:34)
[2017-06-24] MEDS: IBUPROFEN 800 MG TABLET PO PRN ×2 (09:05→18:19)
[2017-06-24] MEDS: GABAPENTIN 400 MG CAPSULE PO SCH ×3 (09:05→20:34)
--- NOTE | 2017-06-24 09:05 | NUR ---
PRN GIVEN Motrin 800mg PO PRN was given for c/o generalized pain 12/10. facial grimacing is observed. Call light is within reach. Will continue to monitor.
--- NOTE | 2017-06-24 10:05 | NUR ---
PRN RE-ASSESSMENT Motrin PRN was effective. Pt states of pain level 4/10. Encourage increase fluid intake. Will continue to monitor.
[2017-06-24 12:00] VITALS: BP 128/75
[2017-06-24 16:00] VITALS: BP 116/80
[2017-06-24] MEDS ORDERED: CYANOCOBALAMIN 1000 MCG/ML VIAL IM ONE (18:00)
[2017-06-24] MEDS: HYDROXYZINE PAMOATE 25 MG CAPSULE PO PRN (18:19)
--- NOTE | 2017-06-24 18:19 | NUR ---
PRN GIVEN Pt c/o generalized muscle aching and anxiety. Vistaril 25mg PO PRN and Motrin 800mg PO PRN was given as ordered. Encouraged increase fluid intake. will continue to monitor.
--- NOTE | 2017-06-24 19:00 | NUR ---
END OF SHIFT Pt is a 32 yr old male, AA&Ox4. Pt was admitted on 06/18/17 for Opiate and Benzo w/d and has completed 6 day Subutex and Ativan taper as ordered. Medication isaías well. Pt c/o increase anxiety and muscle aching. Motrin 800mg PO PRN and Vistaril 25mg PO PRN was given at 1819. Medication was effective. Pt is to be discharged tomorrow on 06/25/17. Pt continue to c/o anxiety due to d/c. Skin is intact, warm and moist to touch. Lat COWS score was 6 and CIWA score was 6 at 1600. Safety precautions observed. Call light is within reach.
--- NOTE | 2017-06-24 19:15 | NUR ---
START OF SHIFT Patient is 32-year-old male admitted on 06/18/17 for opiate and benzo withdrawal. Patient has completed a 6-day Subutex and 6-day Ativan taper, tolerated well. Last COWS 6, last CIWA 6 per day shift. Patient received PRN Motrin and Vistaril during day shift for muscle aches and anxiety, respectively. Patient is scheduled for discharge tomorrow. Upon assessment, patient appears anxious, verbalizes feeling anxious and reports difficulty sleeping. Patient is unshaven, slumped in bed, room cluttered. Safety measures in place, side rails up x2, bed locked in low position, call light within reach. Will continue to monitor.
[2017-06-24 20:00] VITALS: BP 133/80
[2017-06-24] MEDS: CLONIDINE HCL 0.2 MG TABLET PO SCH (20:34)
[2017-06-24] MEDS: QUETIAPINE FUMARATE 25 MG TABLET PO PRN (20:34)
[2017-06-24] MEDS: METHOCARBAMOL 750 MG TABLET PO PRN (20:34)
--- NOTE | 2017-06-24 20:34 | NUR ---
PRN ROBAXIN AND SEROQUEL Patient reports that PRN Motrin was not effective in relieving muscle aches. Patient complains of aches and pains at right knee, both hips, his back and both his shoulders. PRN Robaxin given PO. Patient reports inability to sleep. PRN Seroquel given PO. Safety measures in place, call light within reach. Will monitor for effectiveness.
--- NOTE | 2017-06-24 21:34 | NUR ---
PRN ROBAXIN AND SEROQUEL REASSESSMENT Patient reports improvement in pain, initially 7/10 on pain scale, decreased to 4/10. Patient reports feeling sleepy and is resting in bed. PRNs effective. Safety measures in place, call light within reach. Will continue to monitor.
[2017-06-24] MEDS ORDERED: HYDR-3895 PO (23:55)
[2017-06-24] MEDS ORDERED: QUET25TA PO (23:55)
[2017-06-24] MEDS ORDERED: BACL20TA PO (23:55)
[2017-06-24] MEDS ORDERED: GABA-536 PO (23:55)
[2017-06-24] MEDS ORDERED: IBUP-1957 PO (23:55)
[2017-06-24] MEDS ORDERED: CLON0.1T14 PO (23:55)
[2017-06-24] MEDS ORDERED: DICY20TA28 PO (23:55)
--- NOTE | 2017-06-25 | NUR ---
VITALS REFUSED, COWS & CIWA DEFERRED Patient refused midnight vital signs. COWS and CIWA deferred due to patient sleeping; to be assessed and scored while patient is awake, per protocol. Respirations even and unlabored, 16/min. Safety measures in place, call light within reach. Will continue to monitor.
--- NOTE | 2017-06-25 04:00 | NUR ---
VITALS REFUSED, COWS & CIWA DEFERRED Patient refused 4AM vital signs. COWS and CIWA deferred due to patient sleeping; to be assessed and scored while patient is awake, per protocol. Respirations even and unlabored, 16/min. Safety measures in place, bed locked in low position, side rails up x2, call light within reach. Will continue to monitor.
--- NOTE | 2017-06-25 07:05 | NUR ---
END OF SHIFT Patient is 32-year-old male admitted on 06/18/17 for opiate and benzo withdrawal. Patient has completed a 6-day Subutex and 6-day Ativan taper, tolerated well, scheduled for discharge today. Last COWS 7, last CIWA 6 per day shift. Patient received PRN Robaxin and Seroquel during hourly shift for pain and insomnia, both were effective. Total intake of 2,480mL, void x4, stool x1, slept for 6 hours. Safety measures in place, side rails up x2, bed locked in low position, call light within reach. Will continue to monitor.
--- NOTE | 2017-06-25 07:23 | NUR ---
START OF SHIFT Pt is a 32 yr old male, AA&Ox4. pt was admitted on 06/18/17 for Opiate/benzo withdrawal and has completed a 6 day Ativan and Subutex taper as ordered. Medication isaías well. Received report from night shift manager nurse. Pt received Robaxin PO PRN and Seroquel PO PRN for pain and sleep. Medication was effective. Pt slept for 7 hours. Last COWS score was 7, CIWA was 6 at 2000. Pt is currently in bed sleeping with respirations even and unlabored. No acute distress noted. Skin is intact, warm and dry to touch. Pt is to be discharged today to [facility]. safety precaution observed. Call light is within reach. Will continue to monitor.
[2017-06-25 08:00] VITALS: BP 99/62
[2017-06-25 08:16] VITALS: BP 99/62
[2017-06-25] MEDS: GABAPENTIN 400 MG CAPSULE PO SCH (08:16)
[2017-06-25] MEDS: CLONIDINE HCL 0.1 MG TABLET PO SCH (08:16)
[2017-06-25] MEDS: HYDROXYZINE PAMOATE 25 MG CAPSULE PO PRN (08:16)
[2017-06-25] MEDS: BACLOFEN 20 MG TABLET PO SCH (08:17)
--- NOTE | 2017-06-25 09:40 | NUR ---
DISCHARGE NOTE Pt is a 32 yr old male, AA&Ox4. Pt was admitted on 06/18/17 for Opiate and Benzo w/d and has completed a 6 day Ativan and Subutex taper. Medication was effective. Pt was cooperative with medication regimen and plan of care. Pt was observed with anxiety due to discharged. Vistaril 25mg PO PRN was given at 0816 for anxiety. Medication was effective. Last COWS score was 4 and CIWA score was 3 at 0800. Pt was educated on discharged summary and prescriptions. pt was able to verbalize understanding. Pt was discharged of the unit at 0936 to [facility]. Pt left in stable condition will all belongings, valuables and home medication.
== END 2017-06-25 09:30 | disposition other institution (70) | DRG 895 ==
LOC: SRC 11:52
PROVIDERS: ADMIT Internal Medicine; ATTEND Internal Medicine
PROC: HZ2ZZZZ Detoxification Services for Substance Abuse Treatment (ICD-10-PCS; principal; 2017-06-18)
PROC: HZ31ZZZ Individual Counseling for Substance Abuse Treatment, Behavioral (ICD-10-PCS; 2017-06-21)
PROC: HZ41ZZZ Group Counseling for Substance Abuse Treatment, Behavioral (ICD-10-PCS; 2017-06-22)
DX: F13.239 Sedative, hypnotic or anxiolytic dependence with withdrawal, unspecified (principal); I15.9 Secondary hypertension, unspecified; E53.8 Deficiency of other specified B group vitamins; F11.23 Opioid dependence with withdrawal; F41.9 Anxiety disorder, unspecified; G89.29 Other chronic pain; M16.0 Bilateral primary osteoarthritis of hip; M54.5 Low back pain; G47.00 Insomnia, unspecified; F15.10 Other stimulant abuse, uncomplicated; M50.30 Other cervical disc degeneration, unspecified cervical region
CPT/HCPCS: 36415; 70030-TC; 80307; 80349; 80353; 80361; 83735; 85025; 86580; 86592; 86705; 86803; 87340; 87806; G0480; J3420; Q0163